=== PATIENT | male | born 1960 | race Caucasian/White ===

== ENCOUNTER 2020-02-28 13:12 | Emergency (ER) | payer OTHER, SELFPAY ==
[2020-02-28 13:41] VITALS: BP 112/63; PULSE 90; RESP 18; TEMP 36.6; O2SAT 98
--- NOTE | 2020-02-28 13:43 | ED.SKABFB ---
HPI - Skin/Abscess/Foreign Bdy General Chief complaint: Skin/Abscess/Foreign Body Stated complaint: Rash on Face Time Seen by Provider: 02/28/20 13:43 Source: patient Mode of arrival: ambulatory Limitations: no limitations History of Present Illness HPI narrative: Evelio Salcedo is a 60 year old with no PMH who comes here with rash to L side of face and L ear swelling that started on Tuesday; Tuesday, left-sided facial rash that stops midline throughout hairline and down left eye with swelling and tenderness and mild eyelid swelling tender with palpation no itching-symptoms altered because he is using a cream that he got in [place] that has benzocaine and Chlortrimazole in it Related Data Home Medications Medication Instructions Recorded Confirmed Otc Vitamin 02/28/20 Prevagen 02/28/20 amoxicillin BID 02/28/20 aspirin 325 mg PO DAILY 02/28/20 02/28/20 Allergies Allergy/AdvReac Type Severity Reaction Status Date / Time No Known Allergies Allergy Unverified 09/16/10 18:52 Review of Systems Review of Systems: Narrative: CONSTITUTIONAL: Denies fever, chills, sweats. EYES: Denies visual changes, redness, discharge. ENT: Denies rhinorrhea, congestion, sore throat, otalgia. CARDIOVASCULAR: Denies chest pain, palpitations, edema. RESPIRATORY: Denies dyspnea, wheezing, cough GASTROINTESTINAL: Denies abdominal pain, nausea, vomiting, diarrhea. GENITOURINARY: Denies dysuria, hematuria, abnormal discharge SKIN: Rash swelling to left eye area and left ear tenderness and swelling NEUROLOGIC: Denies numbness, or focal weakness. PSYCHIATRIC: Denies anxiety or depression. PMFSH Past Medical History Medical History No acute medical problems Family History Family History Other Hypertension Social History Social History (Updated 02/28/20 @ 14:21 by Flaquita Hernandez CNP) Smoking packs per day: 5 Smoking cigarettes per day: 100.0 Smoking status: Current every day smoker Alcohol intake: former Comments At time of signature, I agree with nursing past medical, surgical, social and family history. There is no relevant family history pertinent to the presenting complaint. Exam Narrative: Exam Narrative: GENERAL: This is a well-nourished, well-developed patient, in mild distress. HEAD: normocephalic, atraumatic. EYES: Sclera clear/white. Vision is grossly intact. EARS: External ears normal, auditory canals clear on R, edematous and erythema without drainage on L, TMs normal without perforation. Hearing grossly intact. NOSE: External nose normal without nasal discharge, nares without redness, no rhinorrhea. THROAT: Mucous membranes moist, NECK: Neck supple, non-tender CARDIOVASCULAR: Regular rate and rhythm without murmurs, gallops, or rubs. RESPIRATORY: Clear to auscultation. Breath sounds equal bilaterally. No wheezes, rales, or rhonchi. GASTROINTESTINAL: Abdomen soft, non-tender, SKIN: warm, intact has a rash midline hair and along hairline and left forehead mild edema of the left eyelid year is mildly edematous ear canal is swollen and red; rash is tender to touch NEURO: awake, alert, and oriented to person, place and time. There were no obvious focal neurologic abnormalities. Steady gait EXTREMITIES: Normal range of motion. BACK: Nontender without deformity Course Course Emergency Course: Rash to left side of face and ear swelling Started on valacyclovir along with ciprofloxacin eardrops to continue amoxicillin that was started by PCP on Tuesday but increase to 3 times daily Follow-up with PCP Vital Signs Vital signs: Vital Signs Temperature 97.9 F 02/28/20 13:41 Pulse Rate 90 02/28/20 13:41 Respiratory Rate 18 02/28/20 13:41 Blood Pressure 112/63 02/28/20 13:41 Pulse Oximetry 98 02/28/20 13:41 Temperature 97.9 F 02/28/20 13:41 Pulse Rate 90 02/28/20 13:41 Respir
== END 2020-02-28 14:32 | disposition home or self-care (01) ==
PROVIDERS: Emergency Provider Nurse Practitioner
DX: B02.21 Postherpetic geniculate ganglionitis (principal); H60.392 Other infective otitis externa, left ear; F17.200 Nicotine dependence, unspecified, uncomplicated; Z79.82 Long term (current) use of aspirin
CPT/HCPCS: 99213; G0463

== ENCOUNTER 2022-07-08 19:46 | Emergency (ER) | payer BC, SELFPAY ==
[2022-07-08 19:57] VITALS: BP 101/62; PULSE 53; RESP 18; TEMP 36.4; O2SAT 99
--- NOTE | 2022-07-08 20:05 | ED.SKABFB ---
HPI - Skin/Abscess/Foreign Bdy General Chief complaint: Ear Stated complaint: Bilateral Ear Irritation,Cyst Back Of Head Time Seen by Provider: 07/08/22 20:07 Source: patient and RN notes reviewed Mode of arrival: ambulatory Limitations: no limitations History of Present Illness HPI narrative: 62-year-old male presents with multiple concerns. He reports he had a cyst on the back of his head that he has had for most of his life, it never caused him any problems. He reports suddenly it ruptured and it has foul-smelling drainage. He reports is slightly tender. He denies any warmth, fever, aches, chills, sweats. And a separate complaint he also reports chronic drainage from bilateral ears with flakiness and both ear canals. MD complaint: abscess/boil and other (Ear drainage) Related Data Home Medications Medication Instructions Recorded Confirmed aspirin 325 mg tablet 325 mg PO DAILY 02/28/20 07/08/22 Allergies Allergy/AdvReac Type Severity Reaction Status Date / Time No Known Allergies Allergy Verified 07/08/22 20:13 Review of Systems Review of Systems: CONSTITUTIONAL: Denies malaise, chills, sweats, or fever. EYES: Denies redness, or discharge. ENT: Denies rhinorrhea, congestion. Reports green drainage from both ears with flakiness in the ear canals CARDIOVASCULAR: Denies chest pain, palpitations, or edema. RESPIRATORY: Denies cough or dyspnea. GASTROINTESTINAL: Denies abdominal pain, nausea, vomiting SKIN: Reports ruptured cyst with foul-smelling drainage MUSCULOSKELETAL: Denies joint pain or myalgia. NEUROLOGIC: Denies headache. All systems reviewed & are unremarkable except as noted in HPI and below PMFSH Past Medical History Medical History No acute medical problems Family History Family History Other Hypertension Social History Social History (Updated 02/28/20 @ 14:21 by Flaquita Hernandez, [email or web address]) Smoking packs per day: 5 Smoking cigarettes per day: 100.0 Smoking status: Current every day smoker Alcohol intake: former Comments At time of signature, agree with nursing past medical, surgical, social and family history. There is no relevant family history pertinent to the presenting complaint Exam Narrative: GENERAL: Well-appearing, well-nourished, and in no acute distress. HEAD: Normocephalic, atraumatic. EYES: PERRLA, conjunctivae clear, and EOMI. ENT: Mucous membranes moist. Flaky skin noted in bilateral EAC and outside of the ear without any notable EAC erythema, edema. Green drainage noted at the end of both ear canals, unclear if the tympanic membrane is intact NECK: Supple. No lymphadenopathy CHEST: Clear to auscultation. No respiratory distress. HEART: Regular rate and rhythm. SKIN: Warm, dry. Approximately 3.5 cm indented area noted on the back of the scalp in the left parietal area with some crusted drainage noted, no fluctuation noted, no erythema, edema, induration noted NEURO: Alert and oriented x3. PSYCH: Normal mood and affect Course Course Emergency Course: Advised patient that he needs to follow-up with an axle bearing polisher for further evaluation of the chronic condition in his ears. Patient does not have a primary care provider, information was given to him to find a primary care provider Patient is aware of diagnosis, understands and agrees to treatment plan. Anticipatory guidance given. Patient agrees to follow-up as directed and is aware of reasons to seek care at the emergency department. Portions of this record may have been created with voice recognition software Level of Care: Express Care Visit Vital Signs Vital signs: Vital Signs Temperature 97.5 F L 07/08/22 19:57 Pulse Rate 53 L 07/08/22 19:57 Respiratory Rate 18 07/08/22 19:57 Blood Pressure 101/62 07/08/22 19:57 Pulse Oximetry 99 07/08/22 19:57 Oxygen
== END 2022-07-08 20:23 | disposition home or self-care (01) ==
PROVIDERS: Emergency Provider Nurse Practitioner
DX: H60.93 Unspecified otitis externa, bilateral (principal); L72.3 Sebaceous cyst; F17.210 Nicotine dependence, cigarettes, uncomplicated; Z79.82 Long term (current) use of aspirin
CPT/HCPCS: 99213; G0463